=== PATIENT | female | born 1990 | race Caucasian/White ===

== ENCOUNTER 2017-10-19 03:16 | Emergency (ER) | payer SELFPAY ==
[~2017-10-19] VITALS: Ht 165.1 cm; Wt 54.4 kg
--- NOTE | 2017-10-19 03:21 | NUR ---
PT AMBULATORY TO ER BED 7, PT BIB DAD. C/O DIZZINESS W/ N/V X 1 DAY FROM TAKING NORCO. PT HAD WISDOM TEETH REMOVED FRIDAY AND WAS PRESCRIBED NORCO FOR PAIN. PT PLACED IN A GOWN AND ON ARBORICULTURIST. VSS/RESP EVEN UNLABORED/NAD NOTED/SKIN WARM AND DRY/AOX4. AT BEDSIDE FOR EVAL.
[2017-10-19] MEDS ORDERED: ONDANSETRON HCL/PF 4 MG/2 ML VIAL ONE ×2 (03:27→04:11)
[2017-10-19] MEDS ORDERED: ONDANSETRON HCL/PF 4 MG/2 ML VIAL IVP ONE (03:30)
[2017-10-19] MEDS ORDERED: FAMOTIDINE/PF INJ 20 MG/2 ML VIAL IV ONE ×2 (03:30→03:32)
[2017-10-19] MEDS ORDERED: IV NS 0.9% 1,000 ML BAG IV ONE ×3 (03:30→05:00)
--- NOTE | 2017-10-19 03:35 | NUR ---
20G IV TO L AC X 1 ATTEMPT USING ASEPTIC TECH, BLOOD HANDED OVER TO THE LAB AT BEDSIDE. IV FLUSHES EASILY WITH NS.
[2017-10-19 03:46] LABS: BASOPHILS % (AUTO) 0.1 % (0.0-2.0); EOSINOPHILS # (AUTO) 0.1 /CMM (0.0-0.7); EOSINOPHILS % (AUTO) 0.6 % (0.0-6.0); HEMATOCRIT 39 % (33-45); LYMPHOCYTES # (AUTO) 3.1 /CMM (0.8-4.8); MEAN CORPUSCULAR HEMOGLOBIN 29 PG (26.0-33.0); MEAN CORPUSCULAR HGB CONC 33 g/dl (31.0-36.0); MEAN CORPUSCULAR VOLUME 87 fL (82-100); MONOCYTES # (AUTO) 0.6 /CMM (0.1-1.30); MONOCYTES % (AUTO) 4.9 % (2.0-12.0); NEUTROPHILS # (AUTO) 8.5 /CMM (1.8-8.9); NEUTROPHILS % (AUTO) 69.4 % (43.0-81.0); PLATELET COUNT (AUTO) 297 /CMM (150-450); RDW COEFFICIENT OF VARIATION 12.5 (11.5-15.0); RED BLOOD CELL COUNT(AUTO) 4.51 MIL/uL (4.0-5.2); WHITE BLOOD COUNT (AUTO) 12.2 K/uL (4.3-11.0)
[2017-10-19 04:02] LABS: ALBUMIN 3.6 g/dL (3.4-5.0); BILIRUBIN,DIRECT 0.1 mg/dL (0.0-0.2); BILIRUBIN,TOTAL 0.4 mg/dL (0.2-1.0); CREATININE 0.9 mg/dL (0.6-1.3); POTASSIUM 3.2 mmol/L (3.5-5.1); TOTAL PROTEIN, SERUM 7.8 g/dL (6.4-8.2)
--- NOTE | 2017-10-19 04:20 | NUR ---
MEDICATED PER MD ORDERS, VSS.
[2017-10-19] MEDS ORDERED: ONDANSETRON HCL/PF 4 MG/2 ML VIAL IV ONE (04:30)
[2017-10-19] MEDS ORDERED: METOCLOPRAMIDE HCL 10 MG/2 ML VIAL ONE (04:47)
[2017-10-19] MEDS ORDERED: METOCLOPRAMIDE HCL 10 MG/2 ML VIAL IV ONE (05:00)
--- NOTE | 2017-10-19 05:29 | NUR ---
IV removed. Catheter intact and site benign. Pressure and 4x4 applied to site. No bleeding noted. Patient discharged to home in stable condition. Written and verbal after care instructions given. Patient verbalizes understanding of instruction. Patient ambulatory with a steady gait.
[2017-10-19 05:30] VITALS: BP 108/82
== END 2017-10-19 05:30 | disposition home or self-care (01) ==
LOC: ER 03:21
DX: R11.2 Nausea with vomiting, unspecified (principal)
CPT/HCPCS: 36415; 80048; 80076; 83690; 85025; 96361; 96374; 96375; 96376; 99284; A4606; J2405 ×2; J2765; J3490; J7030 ×3; Z7610